=== PATIENT | female | born 1950 | race African-American/Black ===

== ENCOUNTER 2018-10-22 16:05 | Inpatient (IN) ==
[2018-10-22 16:58] LABS: BASO# 0.01 X1000 (0.0-0.2); BASO% 0.1 % (0.0-0.8); EOS# 0.01 X1000 (0.0-0.7); EOS% 0.1 % (0.0-10.0); HEMATOCRIT 35.8 % (37.0-47.0); IMM GRAN# 0.02 X1000 (0.0-0.04); IMM GRAN% 0.3 % (0.0-0.5); LYMPH# 1.56 X1000 (1.2-3.4); LYMPH% 19.6 % (20.5-51.1); MCH 31.3 PG (27-31); MCHC 33.5 g/dL (33-37); MCV 93.5 FL (81-99); MONO# 1.04 X1000 (0.11-0.59); MONO% 13.1 % (1.7-9.3); NEUT# 5.32 X1000 (1.4-6.5); NEUT% 66.8 % (42.2-75.2); PLT 196 X1000 (130-400); RBC 3.83 XMIL (4.2-5.4); WBC 7.96 X1000 (4.8-10.8)
[2018-10-22 17:01] LABS: BE 3.5 mmoll (-3.0-3.0); BLOOD TYPE ARTERIAL; HCO3-(ACT) 27.4 mmoll (20.0-26.0); METHB 1.2 % (0.0-1.5); O2(CT) 16.1 mL/dL (15.0-23.0); PCO2(98.6) 35 mmHg (35-45); PO2(98.6) 54 mmHg (60-100); SAMPLE BLOOD; SAO2 94.3 % (95.0-100.0); pH(98.6) 7.49 (7.35-7.45)
[2018-10-22 17:06] LABS: AGAP 11; ALBUMIN 4.2 g/dL (3.5-5.0); ALKALINE PHOSPHATASE 51 U/L (32-104); BUN 13 mg/dL (8-22); CHLORIDE 103 mmol/L (98-107); COSMO 282; CREATININE 0.7 mg/dL (0.5-0.9); ESTIMATED GFR > 60; GLUCOSE 114 mg/dL (70-104); GOT 14 U/L (10-30); GPT 9 U/L (10-36); POTASSIUM 4.6 mmol/L (3.5-5.1); SODIUM 141 mmol/L (136-145); TCO2 27 mmol/L (25-35); TOTAL PROTEIN 7.2 g/dL (6.3-8.3)
[2018-10-22 17:12] LABS: O2HB 88.3 % (95.0-99.0)
[2018-10-22 17:13] LABS: ALLEN TEST YES; MODALITY ROOM AIR
[2018-10-22] MEDS ORDERED: DUONEB (A & A) INH ONE (17:27)
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
--- NOTE | 2018-10-22 17:44 | EKG Report ---
Test Performed on : 10/22/2018 4:19:28 PM Test Reason : WEAKNESS Blood Pressure : / mmHG Vent. Rate : 060 BPM Atrial Rate : 060 BPM P-R Int : 144 ms QRS Dur : 080 ms QT Int : 486 ms P-R-T Axes : 049 005 051 degrees QTc Int : 486 ms Normal sinus rhythm. Prolonged QT Abnormal ECG When compared with ECG of 22-OCT-2018 16:02, (Unconfirmed) Vent. rate has decreased BY 31 BPM Confirmed by Taiwo Cihn MD ([id number]), scientific editor Sonia Tapia ([id number]) on 10/28/2018 1:54:50 PM
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
[2018-10-22] MEDS ORDERED: DUONEB (A & A) INH PRN (18:48)
[2018-10-22 23:00] LABS: BILIRUBIN URINE NEGATIVE (NEGATIVE); BLOOD URINE 2+ (NEGATIVE); CLARITY SL. CLOUDY (CLEAR); COLOR YELLOW; GLUCOSE URINE NEGATIVE (NEGATIVE); KETONE URINE TRACE mg/dL (NEGATIVE); LEUKOCYTES URINE 2+ (NEGATIVE); NITRITE URINE POSITIVE (NEGATIVE); PROTEIN URINE TRACE mg/dL (NEGATIVE); UROBILINOGEN URINE NORMAL
[2018-10-22 23:01] LABS: URINE BACTERIA 4+ /HFP; URINE WBC TNTC /HPF (<10)
[2018-10-22 23:03] LABS: URINE EPITHELIAL CELLS >10 /HPF (<10); URINE RBC <10 /HPF (<10); URINE SMALL ROUND CELLS TRANSITIONAL PRESENT; URINE SOURCE CLEAN CATCH
[2018-10-23 07:45] VITALS: BP 125/94
[2018-10-23 08:18] LABS: BLOOD TYPE ARTERIAL; O2HB 95.6 % (95.0-99.0); PCO2(98.6) 36 mmHg (35-45); PO2(98.6) 89 mmHg (60-100); SAMPLE BLOOD; SAO2 98.9 % (95.0-100.0); THB 11.8 g/dL (11.5-17.4); pH(98.6) 7.49 (7.35-7.45)
[2018-10-23 08:22] LABS: ALLEN TEST YES; MODALITY ROOM AIR
[2018-10-23 08:26] LABS: BASO# 0.01 X1000 (0.0-0.2); BASO% 0.1 % (0.0-0.8); EOS# 0.07 X1000 (0.0-0.7); HEMATOCRIT 33.8 % (37.0-47.0); HEMOGLOBIN 11.4 g/dL (12.0-16.0); IMM GRAN# 0.02 X1000 (0.0-0.04); IMM GRAN% 0.3 % (0.0-0.5); LYMPH# 2.05 X1000 (1.2-3.4); LYMPH% 29.5 % (20.5-51.1); MCH 31.3 PG (27-31); MCHC 33.7 g/dL (33-37); MCV 92.9 FL (81-99); MONO# 1.05 X1000 (0.11-0.59); MONO% 15.1 % (1.7-9.3); MPV 9.9 FL (7.4-10.4); NEUT# 3.74 X1000 (1.4-6.5); PLT 190 X1000 (130-400); RBC 3.64 XMIL (4.2-5.4); RDW 14.9 % (11.5-14.5); WBC 6.94 X1000 (4.8-10.8)
[2018-10-23] MEDS ORDERED: SYMBICORT 160/4.5 MICROGM INHALER INH PRN (08:34)
[2018-10-23 08:37] LABS: AGAP 10; BUN 12 mg/dL (8-22); CALCIUM 8.5 mg/dL (8.8-10.2); CHLORIDE 101 mmol/L (98-107); COSMO 274; CREATININE 0.6 mg/dL (0.5-0.9); ESTIMATED GFR > 60; GLUCOSE 108 mg/dL (70-104); POTASSIUM 3.5 mmol/L (3.5-5.1); SODIUM 137 mmol/L (136-145); TCO2 26 mmol/L (25-35)
[2018-10-23] MEDS ORDERED: VENTOLIN HFA INH SCH (09:00)
[2018-10-23] MEDS ORDERED: CREON PO SCH (09:00)
[2018-10-23] MEDS ORDERED: SEPTRA DS PO SCH (09:00)
[2018-10-23] MEDS ORDERED: CELEXA PO SCH (09:00)
[2018-10-23] MEDS ORDERED: GLUCOPHAGE XR PO SCH (09:00)
[2018-10-23] MEDS ORDERED: TENORMIN PO SCH (09:00)
[2018-10-23] MEDS ORDERED: ASPIRIN EC PO SCH (09:00)
[2018-10-23] MEDS ORDERED: AVAPRO PO SCH (09:00)
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
[2018-10-23] MEDS ORDERED: PRAVACHOL PO SCH (21:00)
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
== END 2018-10-23 11:57 | disposition home or self-care (01) | DRG 191 ==
LOC: P.MEDSURG 16:05 → P.ED 16:05 → OBSVTOIN 19:53
PROVIDERS: ATTEND Internal Medicine
CPT/HCPCS: 71020; 71046; 80048; 80053; 81001; 82805; 82948; 85025; 87077; 87088; 87186; 93005; 94640; 94761; 99285; A9270; XXXXX